=== PATIENT | male | born 1950 | race Hispanic/Latino ===

== ENCOUNTER 2024-04-02 07:43 | Emergency (ER) | payer OTHER, MEDICARE ==
[~2024-04-02] VITALS: Ht 170.2 cm; Wt 100.7 kg
--- NOTE | 2024-04-02 08:02 | NUR ---
BLADDER SCAN [id number]
--- NOTE | 2024-04-02 08:18 | NUR ---
INITIAL URINE OUTPUT WITH HARVEY PLACEMENT [id number]
[2024-04-02 08:20] LABS: BASOPHILS # (AUTO) 0.04 K/uL (0.00-0.20); BASOPHILS % (AUTO) 0.6 % (0.0-5.0); EOSINOPHILS # (AUTO) 0.06 K/uL (0.00-0.70); EOSINOPHILS % (AUTO) 0.9 % (0.0-8.0); IMMATURE GRANULOCYTE ABSOLUTE 0.04 K/uL (0-1); LYMPHOCYTES % (AUTO) 14.4 % (21.0-51.0); MEAN CORPUSCULAR HEMOGLOBIN 28.9 pg (27.0-33.0); MEAN CORPUSCULAR HGB CONC 32.9 g/dL (32.0-36.0); MEAN CORPUSCULAR VOLUME 88.1 fL (79-99); MONOCYTES # (AUTO) 0.5 K/uL (0.1-1.0); MONOCYTES % (AUTO) 7.3 % (3.0-13.0); NEUTROPHILS # (AUTO) 5.3 K/uL (1.8-7.7); NEUTROPHILS % (AUTO) 76.2 % (40.0-77.0); PLATELET COUNT (AUTO) 241 K/uL (130-400); RED BLOOD CELL COUNT(AUTO) 4.77 MIL/uL (4.50-6.20); RED CELL DISTRIBUTION WIDTH 12.8 % (11.0-15.5); WHITE BLOOD COUNT (AUTO) 6.9 K/uL (4.8-10.8)
[2024-04-02 08:29] LABS: CREATININE 0.7 mg/dL (0.5-1.3); POTASSIUM 3.6 mmol/L (3.5-5.1)
[2024-04-02 08:31] LABS: INR 1.07 (0.85-1.15); PROTHROMBIN TIME 11.9 SEC (9.6-11.6)
[2024-04-02 08:40] LABS: APPEARANCE,URINE CLEAR (CLEAR); BILIRUBIN,URINE NEGATIVE (NEGATIVE); COLOR,URINE LIGHT-YELLOW (YELLOW); GLUCOSE, URINE (UA) NEGATIVE (NEGATIVE); KETONES,URINE NEGATIVE (NEGATIVE); LEUKOCYTE ESTERASE ,URINE NEGATIVE Leu/uL (NEGATIVE); NITRATE,URINE NEGATIVE (NEGATIVE); PH,URINE 6.5 (5.0-8.0); PROTEIN,URINE NEGATIVE (NEGATIVE); UROBILINOGEN,URINE 0.2 mg/dL (0.2-1.0)
[2024-04-02 08:52] LABS: MUCUS,URINE RARE LPF (None Seen); WBC,URINE 0-1 /HPF (0-1)
--- NOTE | 2024-04-02 09:13 | EKG ---
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
--- NOTE | 2024-04-02 09:37 | ERN ---
General Chief Complaint: Urinary Retention Stated Complaint: UNABLE TO URINATE Time Seen by MD: 07:51 History of Present Illness Initial Comments 73-year-old male came in for urinary retention. Patient states that since yesterday he has not been able to urinate and has been having suprapubic pressure. Patient states that this problem has been going on for the past one year however for the past few days has been getting worse. Patient was supposed to see a urologist next week and has an appointment set up. Patient otherwise has no concerns. Allergies: Coded Allergies: No Known Drug Allergies (Unverified Allergy, Unknown, 04/02/24) Past Medical History Past Medical History: Hypertension Past Surgical History: None ROS Dictation CONSTITUTIONAL: Negative except for HPI HEAD/FACE: Negative except for HPI EENT: Negative except for HPI RESPIRATORY: Negative except for HPI GASTROINTESTINAL/ABDOMINAL: Negative except for HPI GENITOURINARY: Negative except for HPI MUSCULOSKELETAL: Negative except for HPI INTEGUMENTARY: Negative except for HPI NEUROLOGICAL/PSYCH: Negative except for HPI HEMATOLOGIC/LYMPHATIC: Negative except for HPI All Systems Negative, Except as noted above. 13 point review of systems assessed and all negative except for above. Physical Exam Physical Exam Dictation Vital Signs reviewed General Appearance: Alert, oriented x 3, no acute distress, well developed, nourished. Head and Face: non-traumatic. Eyes: PERRL, pink conjunctivas, eyelid no trauma, anterior chamber with arcus senilis. Ears: Pinnas intact and no signs of trauma or erythema ear canals clear and no discharge TM no erythema Nose: No discharge, no bleeding. Oropharynx: Mouth normal, tongue pink, pharynx clear,no erythema, tonsils no exudates, no abscesses noted, mucous membrane moist Neck: Supple, non-tender, no thyromegaly, no masses, no JVD, no bruits Breast:Deferred Chest:No tenderness, no crepitus, no paradoxical movement, no retractions Lungs:Clear, well-ventilated, symmetric, no rales, no wheezing, no rhonchi, no stridor, good breath sounds bilaterally Heart: Regular rate, regular rhythm, no murmur, no gallops Vascular: no peripheral edema, Abdomen: Soft, positive bowel sounds, nondistended, no guarding, nontender, no rebound, no masses no hepatomegaly, no splenomegaly, no Madera's sign, no hernias. Rectal: Deferred Genital: Deferred Neurological: Normal speech, motor function intact, sensory function intact Musculoskeletal: Neck nontender, full range of motion, back nontender, full range of motion, Extremities: nontender, full range of motion Skin: Color pink, dry, no turgor, no rash, no lacerations, no abrasions, no contusions. Lymphatic: Deferred Results Laboratory and Microbiology Lab and Micro Result Laboratory Tests Test 04/02/24 08:05 04/02/24 08:25 White Blood Count 6.9 K/uL (4.8-10.8) Red Blood Count 4.77 MIL/uL (4.50-6.20) Hemoglobin 13.8 g/dL (14.0-18.0) L Hematocrit 42.0 % (42-54) Mean Corpuscular Volume 88.1 fL (79-99) Mean Corpuscular Hemoglobin 28.9 pg (27.0-33.0) Mean Corpuscular Hemoglobin Concent 32.9 g/dL (32.0-36.0) Red Cell Distribution Width 12.8 % (11.0-15.5) Platelet Count 241 K/uL (130-400) Mean Platelet Volume 9.0 fL (7.5-10.5) Immature Granulocyte % (Auto) 0.6 % (0-1) Neutrophils (%) (Auto) 76.2 % (40.0-77.0) Lymphocytes (%) (Auto) 14.4 % (21.0-51.0) L Monocytes (%) (Auto) 7.3 % (3.0-13.0) Eosinophils (%) (Auto) 0.9 % (0.0-8.0) Basophils (%) (Auto) 0.6 % (0.0-5.0) Neutrophils # (Auto) 5.3 K/uL (1.8-7.7) Lymphocytes # (Auto) 1.0 K/uL (1.0-4.8) Monocytes # (Auto) 0.5 K/uL (0.1-1.0) Eosinophils # (Auto) 0.06 K/uL (0.00-0.70) Basophils # (Auto) 0.04 K/uL (0.00-0.20) Absolute Immature Granulocyte (auto 0.04 K/uL (0-1) Nucleated Red Blood Cells 0.0 % (0.0-0.19) Prothrombin Time 11.9 SEC (9.6-11.6) H Prothromb Time International Ratio 1.07 (0.85-1.15) Activated Partial Thromboplast Time 27.0 SEC (26.3-35.5) Sodium Level 135 mmol/L (136-145) L Potassium Level 3.6 mmol/L (3.5-5.1) Chloride Level 100 mmol/L (101-111) L Carbon Dioxide Level 26 mmol/L (21-32) Blood Urea Nitrogen 13 mg/dL (7-18) Creatinine 0.7 mg/dL (0.5-1.3) Glomerular Filtration Rate Calc 96 mL/min (>90) Random Glucose 118 mg/dL (70-105) H Total Calcium 8.8 mg/dL (8.5-10.1) Urine Color LIGHT-YELLOW (YELLOW) Urine Appearance CLEAR (CLEAR) Urine pH 6.5 (5.0-8.0) Urine Specific [place] 1.011 (1.001-1.031) Urine Protein NEGATIVE mg/dL (NEGATIVE) Urine Glucose (UA) NEGATIVE mg/dL (NEGATIVE) Urine Ketones NEGATIVE mg/dL (NEGATIVE) Urine Occult Blood +- (TRACE) (NEGATIVE) H Urine Nitrate NEGATIVE (NEGATIVE) Urine Bilirubin NEGATIVE mg/dL (NEGATIVE) Urine Urobilinogen 0.2 mg/dL (0.2-1.0) Urine Leukocyte Esterase NEGATIVE Kane/uL Urine RBC 2-5 /HPF (0-1) H Urine WBC 0-1 /HPF (0-1) Urine Bacteria None /HPF (None Seen) MDM MDM: Differential diagnosis: There are no social concerns with this patient. Prescription drug management Prescriptions will include: Medical management and examination interpretation discussions were had by me with other qualified healthcare professionals as indicated for the patient's care. Isaacs is placed after which 600 cc of urine came out. Patient will be discharged home to follow up with Urology patient was given leg bag for the Isaacs. Patient understands and agrees with plan of care. ED Course Orders Procedure Category Date Status Time 12 Lead Ekg Tracing- EKG 04/02/24 Complete Technical 07:52 Cbc With Differential LAB 04/02/24 Complete 07:52 Basic Metabolic Panel LAB 04/02/24 Complete 07:52 Pt And Ptt LAB 04/02/24 Complete 07:52 Urinalysis LAB 04/02/24 Complete W/Microscopic 07:52 Bladder Scan CPOE 04/02/24 Transmitted 07:56 Iv Insertion CPOE 04/02/24 Transmitted 07:56 Nurse Driven Isaacs [place] 04/02/24 In Process Removal Pro 08:18 Vital Signs Date Time Temp Pulse Resp B/P (MAP) Pulse Ox O2 Delivery O2 Flow Rate FiO2 04/02/24 08:21 86 18 130/89 96 Room Air* 0 21 04/02/24 07:45 98.8 97 18 140/98 97 Room Air DX & DISP Disposition: Discharge Departure Impression: Primary Impression: Urinary retention Condition: Stable Referrals: EUSEBIO TAVERA (PCP) ARSENIO RODARTE MD Apr 02, 2024 09:37
--- NOTE | 2024-04-02 10:00 | NUR ---
LEG BAG PLACED ORDERED. EDUCATION PROVIDED VERBALLY AND WRITTEN REGARDING HARVEY CARE.
[2024-04-02 10:06] VITALS: BP 127/87; PULSE 74; RESP 18; TEMP 98.8; O2SAT 97
== END 2024-04-02 10:08 | disposition home or self-care (01) ==
LOC: EDH 07:43
DX: R33.9 Retention of urine, unspecified (principal); R10.2 Pelvic and perineal pain; I10 Essential (primary) hypertension
CPT/HCPCS: 36415; 80048; 81001; 85025; 85610; 85730; 93005; 99284

== ENCOUNTER 2024-04-18 09:44 | Emergency (ER) | payer OTHER, MEDICARE ==
[~2024-04-18] VITALS: Ht 170.2 cm; Wt 100.8 kg
[2024-04-18 09:55] VITALS: BP 128/68; PULSE 94; RESP 18; TEMP 98.4; O2SAT 96
--- NOTE | 2024-04-18 10:26 | ERN ---
ED Note History of Present Illness Stated Complaint: HARVEY CATH Chief Complaint: Urinary Catheter Problems Time Seen by MD: 09:50 Dictation: 73-year-old male with a history of urinary retention, he was seen at this emergency department 2 weeks ago and a Harvey was placed due to urinary retention, he was discharged with the recommended to follow up with the urologist as outpatient, patient came today complaining of tubes discoloration of the urine as well fever and chills 1 week ago. He was only able to see urologist yet since he has a appointment on June 2024 Allergies: Coded Allergies: No Known Drug Allergies (Unverified Allergy, Unknown, 04/02/24) Past Medical History Past Medical History: Hypertension, Other Additional Past Medical Hx: URINARY RETENTION Surgical History: None Review of System Dictation NEGATIVE EXCEPT PER HPI Constitutional: Fever and chills subjective Eyes: Negative for injury, pain,redness, and discharge ENT: Negative for injury,pain or swelling Cardiovascular: denies chest pain, palpitations, and edema Respiratory: Negative for shortness of breath, cough, and wheezing, Abdomen/GI: Negative for abdominal pain, nausea, vomiting, diarrhea, and constipation Back: Negative for injury and pain : Negative for injury, bleeding and discharge MS/Extremity: Negative for injury and deformity Skin: Negative for rash, and discoloration Neuro: Negative for headache, weakness, numbness, tingling, and seizure Psych: Negative for suicide ideation, homicidal ideation, and hallucinations Initial Vital Sign VS Vital Signs Date Time Temp Pulse Resp B/P (MAP) Pulse Ox O2 Delivery O2 Flow Rate FiO2 04/18/24 09:49 98.4 94 18 128/68 Room Air 0 04/18/24 09:55 96 21 Physical Exam Dictation General: awake, alert, NAD Head/Face: Normocephalic, atraumatic Eyes: PERRL, EOMI, vision at baseline ENT: oral cavity clear, TMs clear, no signs of infection Neck: Trachea midline, supple, no nuchal rigidity Cardiovascular: RRR, normal S1/S2, No MRGs, no JVD Respiratory: CTAB, no respiratory distress, No rales or wheezes Abdomen: Soft , no tender Skin: Warm, dry, normal turgor, no rash MS/Extremity: Pulses equal, no cyanosis, neurovascular intact, FROM Neuro: COAx4, GCS 15, strength 5/5, CN 2-12 intact, normal cerebellar exam, normal gait, Psych: Normal behavior, mood, and affect normal Results (Laboratory/Radiology) Laboratory/Radiology Laboratory Tests Test 04/18/24 10:45 04/18/24 10:46 Urine Color YELLOW (YELLOW) Urine Appearance TURBID (CLEAR) Urine pH 8.5 (5.0-8.0) H Urine Specific [place] 1.023 (1.001-1.031) Urine Protein 600 mg/dL (NEGATIVE) H Urine Glucose (UA) NEGATIVE mg/dL (NEGATIVE) Urine Ketones NEGATIVE mg/dL (NEGATIVE) Urine Occult Blood NEGATIVE (NEGATIVE) Urine Nitrate 2+ (NEGATIVE) H Urine Bilirubin NEGATIVE mg/dL (NEGATIVE) Urine Urobilinogen 0.2 mg/dL (0.2-1.0) Urine Leukocyte Esterase 500 Kane/uL (NEGATIVE) H Urine RBC 51-100 /HPF (0-1) H Urine WBC >100 /HPF (0-1) H Urine WBC Clumps (Auto) MANY /HPF (0-1) Urine Triple Phosphate Crystals MANY /LPF (None Seen) Urine Other Crystals (Auto) 6 /HPF (None Seen) Urine Bacteria MOD /HPF (None Seen) Urine Other Casts 7 /LPF (None Seen) White Blood Count 13.9 K/uL (4.8-10.8) H Red Blood Count 4.67 MIL/uL (4.50-6.20) Hemoglobin 13.5 g/dL (14.0-18.0) L Hematocrit 40.4 % (42-54) L Mean Corpuscular Volume 86.5 fL (79-99) Mean Corpuscular Hemoglobin 28.9 pg (27.0-33.0) Mean Corpuscular Hemoglobin Concent 33.4 g/dL (32.0-36.0) Red Cell Distribution Width 12.3 % (11.0-15.5) Platelet Count 401 K/uL (130-400) H Mean Platelet Volume 8.4 fL (7.5-10.5) Immature Granulocyte % (Auto) 1.4 % (0-1) H Neutrophils (%) (Auto) 79.7 % (40.0-77.0) H Lymphocytes (%) (Auto) 10.4 % (21.0-51.0) L Monocytes (%) (Auto) 7.0 % (3.0-13.0) Eosinophils (%) (Auto) 1.0 % (0.0-8.0) Basophils (%) (Auto) 0.5 % (0.0-5.0) Neutrophils # (Auto) 11.1 K/uL (1.8-7.7) H Lymphocytes # (Auto) 1.5 K/uL (1.0-4.8) Monocytes # (Auto) 1.0 K/uL (0.1-1.0) Eosinophils # (Auto) 0.14 K/uL (0.00-0.70) Basophils # (Auto) 0.07 K/uL (0.00-0.20) Absolute Immature Granulocyte (auto 0.20 K/uL (0-1) Nucleated Red Blood Cells 0.0 % (0.0-0.19) Sodium Level 141 mmol/L (136-145) Potassium Level 3.8 mmol/L (3.5-5.1) Chloride Level 104 mmol/L (101-111) Carbon Dioxide Level 29 mmol/L (21-32) Blood Urea Nitrogen 16 mg/dL (7-18) Creatinine 0.8 mg/dL (0.5-1.3) Glomerular Filtration Rate Calc 92 mL/min (>90) Random Glucose 139 mg/dL (70-105) H Total Calcium 9.3 mg/dL (8.5-10.1) ED Course ED Course Orders Procedure Category Date Status Time Urinalysis Profile LAB 04/18/24 Complete 10:21 Cbc With Differential LAB 04/18/24 Complete 10:21 Basic Metabolic Panel LAB 04/18/24 Complete 10:21 Culture Urine BUSHRA 04/18/24 In Process 11:25 Ceftriaxone 1g Vial PHA 04/18/24 Complete (Rocephine 1g Inj) 11:30 Tamsulosin Hcl PHA 04/18/24 Complete (Flomax) 11:30 Current Medications Medications (Trade) Dose Ordered Sig/Sloan Route PRN Reason Start Time Stop Time Status Last Admin Dose Admin Ceftriaxone Sodium (ROCEphine 1G INJ) 1 gm ONCE ONCE IVPB 04/18/24 11:30 04/18/24 11:31 DC 04/18/24 11:39 Tamsulosin HCl (FloMAX) 0.4 mg ONCE ONCE PO 04/18/24 11:30 04/18/24 11:31 DC 04/18/24 11:39 Vital Signs Date Time Temp Pulse Resp B/P (MAP) Pulse Ox O2 Delivery O2 Flow Rate FiO2 04/18/24 09:55 98.4 94 18 128/68 96 Room Air* 0 21 04/18/24 09:49 98.4 94 18 128/68 Room Air 0 Medical Decision Making MDM Patient with a history of urinary retention, with a Harvey in place x2 weeks, came in due to fever/chills 1 week ago also turbinate discoloration of urine. UTI Retention Check UA Replace Harvey UA came back positive for UTI, 1 g ceftriaxone given, patient will be started on oral antibiotics at home, He wants his Harvey to be removed, I explained that he maybe he will develop urinary retention. He stated that he will take the risk. Patient he will need to follow up with the Urology as outpatient. DX & DISP Disposition: Discharge Departure Impression: Primary Impression: Urinary retention Additional Impression: UTI (urinary tract infection) Condition: Stable Scripts Sulfamethoxazole/Trimethoprim (Bactrim Ds Tablet) 800 Mg-160 Mg Tablet 1 TAB PO BID for 7 Days, #14 TAB 0 Refills Prov: ROBBIE BASURTO MD 04/18/24 Tamsulosin HCl (Flomax) 0.4 Mg Cap.er.24h 0.4 CAP PO DAILY for 30 Days, #30 CAP 0 Refills Prov: ROBBIE BASURTO MD 04/18/24 Additional Instructions: RETURN TO ER FOR ANY ACUTE OR WORSENING SYMPTOMS. FOLLOW-UP IN 1-2 DAYS WITH PRIMARY PROVIDER FOR RECHECK OF TODAY'S SYMPTOMS. Referrals: EUSEBIO TAVERA (PCP) ROBBIE BASURTO MD Apr 18, 2024 10:26
[2024-04-18 10:56] LABS: BASOPHILS # (AUTO) 0.07 K/uL (0.00-0.20); BASOPHILS % (AUTO) 0.5 % (0.0-5.0); EOSINOPHILS # (AUTO) 0.14 K/uL (0.00-0.70); HEMATOCRIT 40.4 % (42-54); LYMPHOCYTES # (AUTO) 1.5 K/uL (1.0-4.8); LYMPHOCYTES % (AUTO) 10.4 % (21.0-51.0); MEAN CORPUSCULAR HEMOGLOBIN 28.9 pg (27.0-33.0); MEAN CORPUSCULAR HGB CONC 33.4 g/dL (32.0-36.0); MEAN CORPUSCULAR VOLUME 86.5 fL (79-99); NEUTROPHILS # (AUTO) 11.1 K/uL (1.8-7.7); NEUTROPHILS % (AUTO) 79.7 % (40.0-77.0); PLATELET COUNT (AUTO) 401 K/uL (130-400); RED BLOOD CELL COUNT(AUTO) 4.67 MIL/uL (4.50-6.20); RED CELL DISTRIBUTION WIDTH 12.3 % (11.0-15.5); WHITE BLOOD COUNT (AUTO) 13.9 K/uL (4.8-10.8)
[2024-04-18 11:09] LABS: APPEARANCE,URINE TURBID (CLEAR); BILIRUBIN,URINE NEGATIVE (NEGATIVE); COLOR,URINE YELLOW (YELLOW); GLUCOSE, URINE (UA) NEGATIVE (NEGATIVE); KETONES,URINE NEGATIVE (NEGATIVE); LEUKOCYTE ESTERASE ,URINE 500 Leu/uL (NEGATIVE); NITRATE,URINE 2+ (NEGATIVE); OCCULT BLOOD,URINE NEGATIVE (NEGATIVE); PH,URINE 8.5 (5.0-8.0); PROTEIN,URINE 600 mg/dL (NEGATIVE); UROBILINOGEN,URINE 0.2 mg/dL (0.2-1.0)
[2024-04-18 11:11] LABS: CREATININE 0.8 mg/dL (0.5-1.3); POTASSIUM 3.8 mmol/L (3.5-5.1)
[2024-04-18 11:24] LABS: ADD UA MICROSCOPIC YES
[2024-04-18 11:32] LABS: BACTERIA,URINE MOD /HPF (None Seen); MUCUS,URINE RARE LPF (None Seen); OTHER CASTS, URINE 7 /LPF (None Seen); RBC,URINE 51-100 /HPF (0-1); TRIPLE PHOSPHATE CRYSTAL,UR MANY /LPF (None Seen); UNCLASSIFIED CRYSTAL 6 /HPF (None Seen); WBC CLUMP MANY /HPF (0-1); WBC,URINE >100 /HPF (0-1)
[2024-04-18] MEDS: cefTRIAXone 1G VIAL IVPB ONE (11:39)
[2024-04-18] MEDS: tamSULOsin HCL 0.4 MG CAP.ER.24H PO ONE (11:39)
[2024-04-18] MEDS ORDERED: TAMS-1 PO (12:14)
[2024-04-18] MEDS ORDERED: SULF1TAB42 PO (12:14)
--- NOTE | 2024-04-18 12:31 | NUR ---
pt chooses to keep fc in place at this time and and char follow up with urology and take abx as needed
== END 2024-04-18 12:38 | disposition home or self-care (01) ==
LOC: EDH 09:44
DX: R33.8 Other retention of urine (principal); N39.0 Urinary tract infection, site not specified; I10 Essential (primary) hypertension
CPT/HCPCS: 99284; 96365; 80048; 85025; 87086; 81001; 36415; J0696

== ENCOUNTER 2024-04-21 14:27 | Emergency (ER) | payer OTHER, MEDICARE ==
[~2024-04-21] VITALS: Ht 170.2 cm; Wt 100.7 kg
[~2024-04-21 14:27] MED LIST: SULF1TAB42 PO; TAMS-1 PO
--- NOTE | 2024-04-21 15:02 | NUR ---
HARVEY REMOVED PER DR. SOARES VERBAL ORDER.
--- NOTE | 2024-04-21 16:05 | ERN ---
General Chief Complaint: Urinary Catheter Problems Stated Complaint: CATH REMOVAL History of Present Illness Initial Comments 73-year-old male who presents for leaking from the Isaacs catheter. Patient had a Isaacs placed about three weeks ago due to urinary retention. He has been taking tamsulosin he took a brief course of antibiotics. He has been in his usual state of health until today when the Isaacs started leaking. He has no other complaints. He was requesting the Isaacs to be removed. Allergies: Coded Allergies: No Known Drug Allergies (Unverified Allergy, Unknown, 04/02/24) Home Meds Active Scripts Sulfamethoxazole/Trimethoprim (Bactrim Ds Tablet) 800 Mg-160 Mg Tablet, 1 TAB PO BID for 7 Days, #14 TAB 0 Refills Prov:ROBBIE BASURTO MD 04/18/24 Tamsulosin HCl (Flomax) 0.4 Mg Cap.er.24h, 0.4 CAP PO DAILY for 30 Days, #30 CAP 0 Refills Prov:ROBBIE BASURTO MD 04/18/24 Past Medical History Past Medical History: Hypertension Medical History Other: URINARY RETENTION Past Surgical History: None ROS Dictation CONSTITUTIONAL: No chills, no fever, no weakness, no diaphoresis, no malaise. HEAD/FACE: No signs of trauma. EENT: No eye pain, no blurred vision, no tearing, no double vision, no ear pain, no ear discharge, no nose pain, no nasal congestion, no throat pain, no throat swelling, no mouth pain. RESPIRATORY: No cough, no orthopnea, no SOB, no stridor, no wheezing. CARDIOVASCULAR: No chest pain, no edema, no palpitations, no syncope. GASTROINTESTINAL/ABDOMINAL: No abdominal pain, no constipation, no diarrhea, no nausea, no vomiting. GENITOURINARY: No abnormal discharge, no dysuria, no frequent urination, no hematuria. No complaints of pain in the genitals. MUSCULOSKELETAL: No back pain, no gout, no joint pain, no joint swelling, no muscle pain, no muscle stiffness, no neck pain. INTEGUMENTARY: No change in color, no change in hair/nails, no dryness, no lesion, no lumps, no rash. NEUROLOGICAL/PSYCH: No anxiety, not depressed, no emotional problem, no headache, no numbness, no pre-existing deficit, no history of seizures, no tremors, no weakness. HEMATOLOGIC/LYMPHATIC: Not anemic, no history of blood clots, no apparent bleeding, no bruising, glands not swollen. All Systems Negative, Except as Noted. Physical Exam Physical Exam Dictation VITAL SIGNS: Reviewed. GENERAL APPEARANCE: Alert, oriented x3, no acute distress, obese. HEAD AND FACE: Non-traumatic. EYES: PERRL, pink conjunctivas, eyelid no trauma, anterior chamber clear. EARS: Pinnas intact and no signs of trauma or erythema. Ear canals clear and no discharge. TMs no erythema. NOSE: No discharge, no bleeding. OROPHARYNX: Mouth normal, teeth no caries, tongue pink. Pharynx clear, no erythema. Tonsils no exudates, no abscesses noted. Mucous membrane moist. NECK: Supple, non-tender, no thyromegaly, no masses, no JVD, no bruits. BREAST: Deferred. CHEST: No tenderness, no crepitus, no paradoxical movement, no retractions. LUNGS: Clear, well-ventilated, symmetric, no rales, no wheezing, no rhonchi, no stridor, good breath sounds bilaterally. HEART: Regular rate, regular rhythm, no murmur, no gallops. VASCULAR: No peripheral edema. ABDOMEN: Soft, positive bowel sounds, nondistended, no guarding, nontender, no rebound, no masses no hepatomegaly, no splenomegaly, no Mad[place]'s sign, no hernias. RECTAL: Deferred. GENITAL: Deferred. NEUROLOGICAL: Normal speech, gross motor function intact, gross sensory function intact. MUSCULOSKELETAL: Neck nontender, full range of motion, back nontender, full range of motion. EXTREMITIES: Nontender, full range of motion. SKIN: Color pink, dry, no turgor, no rash, no lacerations, no abrasions, no contusions. LYMPHATICS: Deferred. MDM CC: Leaking folate or Historian: Patient Comorbidities: BPH Limitations by social determinants of health: None Differential diagnosis: Isaacs catheter complication, urinary retention, other. Vital signs are stable Isaacs was removed. Patient reports relief. He was able to urinate afterwards. We will DC and recommend PCP follow up. ED Course Vital Signs Date Time Temp Pulse Resp B/P (MAP) Pulse Ox O2 Delivery O2 Flow Rate FiO2 04/21/24 15:21 98.4 110 18 131/83 96 Room Air* 0 21 04/21/24 14:53 98.2 111 20 149/91 96 Room Air 0 DX & DISP Disposition: Discharge Departure Impression: Primary Impression: Isaacs catheter problem Condition: Stable Additional Instructions: The Isaacs catheter was removed. Please continue taking all your previously prescribed medications. Please follow up with the primary doctor. Return to the emergency department if you have any urinary retention or other symptoms. Referrals: EUSEBIO TAVERA (PCP) KESHA SOARES DO Apr 21, 2024 16:05
[2024-04-21 16:18] VITALS: BP 127/84; PULSE 98; RESP 19; TEMP 97.4; O2SAT 95
== END 2024-04-21 16:10 | disposition home or self-care (01) ==
LOC: EDH 14:27
DX: T83.038A Leakage of other urinary catheter, initial encounter (principal); I10 Essential (primary) hypertension; Y82.9 Unspecified medical devices associated with adverse incidents; Y92.89 Other specified places as the place of occurrence of the external cause
CPT/HCPCS: 99281

== ENCOUNTER 2024-04-25 07:12 | Emergency (ER) | payer OTHER, MEDICARE ==
[~2024-04-25] VITALS: Ht 170.2 cm; Wt 100.7 kg
--- NOTE | 2024-04-25 07:39 | ERN ---
General Chief Complaint: Urinary Retention Stated Complaint: URINARY RETENTION Time Seen by MD: 07:18 Source: patient History of Present Illness Initial Comments Patient is a 73 y/o male here for evaluation of urine retention. Patient states he has history of urine retention secondry to enlarged prostate. Patient states he had a similar episode in the past, and had urine catheter placed which helped with his urine retention. Allergies: Coded Allergies: No Known Drug Allergies (Unverified Allergy, Unknown, 04/02/24) Home Meds Active Scripts Sulfamethoxazole/Trimethoprim (Bactrim Ds Tablet) 800 Mg-160 Mg Tablet, 1 TAB PO BID for 7 Days, #14 TAB 0 Refills Prov:RBOBIE BASURTO MD 04/18/24 Tamsulosin HCl (Flomax) 0.4 Mg Cap.er.24h, 0.4 CAP PO DAILY for 30 Days, #30 CAP 0 Refills Prov:ROBBIE BASURTO MD 04/18/24 Past Medical History Past Medical History: Hypertension Medical History Other: URINARY RETENTION Past Surgical History: None Physical Exam General Appearance: (+) apparent distress, (+) obese Orientation: (+) alert, (+) oriented x 3 Neck: (+) normal inspection Respiratory: (+) chest non-tender Heart: (+) regular Vascular: (+) no edema Gastrointestinal: (+) soft, (+) non-tender MDM mdm: differential dg: urine retention, prostate enlargment, renal stone Patient is a 73 y/o male here for evaluation of urine retention. Patient states he has been having this symptoms since a couple of days which progressively got worse. Bladder was distended on physical exam. Isaacs was placed and patient put out 500ml of urine. Patient was advised appropriate follow up with pcp in 1-2 days. ED Course Orders Procedure Category Date Status Time Nurse Driven Isaacs [place] 04/25/24 In Process Removal Pro 07:26 Vital Signs Date Time Temp Pulse Resp B/P (MAP) Pulse Ox O2 Delivery O2 Flow Rate FiO2 04/25/24 07:14 97.7 89 16 129/75 95 Room Air 0 DX & DISP Disposition: Discharge Departure Impression: Primary Impression: Urinary retention Condition: Stable Additional Instructions: Patient was advised appropriate follow up with pcp in 1-2 days . Patient will be discharged in stable condition. Referrals: EUSEBIO TAVERA (PCP) Time of Disposition: 07:54 BUCK THOMAS MD Apr 25, 2024 07:39
[2024-04-25 08:20] VITALS: BP 116/69; PULSE 78; RESP 16; TEMP 98.2; O2SAT 97
== END 2024-04-25 08:27 | disposition home or self-care (01) ==
LOC: EDH 07:12
DX: R33.8 Other retention of urine (principal); I10 Essential (primary) hypertension
CPT/HCPCS: 51702; 99284

== ENCOUNTER 2024-05-16 09:06 | Emergency (ER) | payer OTHER, MEDICARE ==
[~2024-05-16] VITALS: Ht 170.2 cm; Wt 99.8 kg
--- NOTE | 2024-05-16 09:11 | ERN ---
General Chief Complaint: Catheter Change Stated Complaint: WANTS F/C CHANGED Time Seen by MD: 09:10 Source: patient History of Present Illness Initial Comments PATIENT IS A 74-YEAR-OLD GENTLEMAN COMING IN FOR HARVEY CATHETER EVALUATION. PER PATIENT HE HAD A HARVEY CATHETER PLACED 20 DAYS AGO AND NOTICED MILD LEAKING AROUND THE INSERTION SITE. PATIENT STATES THAT HE HAS A PENDING UROLOGIST VISIT ON EIGHT FOR THE 10 THE CC CAME IN FOR FURTHER EVALUATION. NO OTHER CURRENT COMPLAINTS. Allergies: Coded Allergies: No Known Drug Allergies (Unverified Allergy, Unknown, 04/02/24) Home Meds Active Scripts Sulfamethoxazole/Trimethoprim (Bactrim Ds Tablet) 800 Mg-160 Mg Tablet, 1 TAB PO BID for 7 Days, #14 TAB 0 Refills Prov:ROBBIE BASURTO MD 04/18/24 Tamsulosin HCl (Flomax) 0.4 Mg Cap.er.24h, 0.4 CAP PO DAILY for 30 Days, #30 CAP 0 Refills Prov:ROBBIE BASURTO MD 04/18/24 Past Medical History Past Medical History: Hypertension Medical History Other: URINARY RETENTION Past Surgical History: None ROS Dictation CONSTITUTIONAL: NO CHILLS, NO FEVER, NO WEAKNESS, NO DIAPHORESIS, NO MALAISE. HEAD/FACE: NO SIGNS OF TRAUMA. EENT: NO EYE PAIN, NO BLURRED VISION, NO TEARING, NO DOUBLE VISION, NO EAR PAIN, NO EAR DISCHARGE, NO NOSE PAIN, NO NASAL CONGESTION, NO THROAT PAIN, NO THROAT SWELLING, NO MOUTH PAIN. RESPIRATORY: NO COUGH, NO ORTHOPNEA, NO SOB, NO STRIDOR, NO WHEEZING. CARDIOVASCULAR: NO CHEST PAIN, NO EDEMA, NO PALPITATIONS, NO SYNCOPE. GASTROINTESTINAL/ABDOMINAL: NO ABDOMINAL PAIN, NO CONSTIPATION, NO DIARRHEA, NO NAUSEA, NO VOMITING. GENITOURINARY: NO ABNORMAL DISCHARGE, NO DYSURIA, NO FREQUENT URINATION, NO HEMATURIA. NO COMPLAINTS OF PAIN IN THE GENITALS. MUSCULOSKELETAL: NO BACK PAIN, NO GOUT, NO JOINT PAIN, NO JOINT SWELLING, NO MUSCLE PAIN, NO MUSCLE STIFFNESS, NO NECK PAIN. INTEGUMENTARY: NO CHANGE IN COLOR, NO CHANGE IN HAIR/NAILS, NO DRYNESS, NO LESION, NO LUMPS, NO RASH. NEUROLOGICAL/PSYCH: NO ANXIETY, NOT DEPRESSED, NO EMOTIONAL PROBLEM, NO HEADACHE, NO NUMBNESS, NO PRE-EXISTING DEFICIT, NO HISTORY OF SEIZURES, NO TREMORS, NO WEAKNESS. HEMATOLOGIC/LYMPHATIC: NOT ANEMIC, NO HISTORY OF BLOOD CLOTS, NO APPARENT BLEEDING, NO BRUISING, GLANDS NOT SWOLLEN. ALL SYSTEMS NEGATIVE, EXCEPT NOTED. Physical Exam Physical Exam Dictation VITAL SIGNS: REVIEWED. GENERAL APPEARANCE: ALERT, ORIENTED X3, NO ACUTE DISTRESS, OBESE. HEAD AND FACE: NON-TRAUMATIC. EYES: PERRL, PINK CONJUNCTIVAS, EYELID NO TRAUMA, ANTERIOR CHAMBER CLEAR. EARS: PINNAS INTACT AND NO SIGNS OF TRAUMA OR ERYTHEMA. EAR CANALS CLEAR AND NO DISCHARGE. TMS NO ERYTHEMA. NOSE: NO DISCHARGE, NO BLEEDING. OROPHARYNX: MOUTH NORMAL, TEETH NO CARIES, TONGUE PINK. PHARYNX CLEAR, NO ERYTHEMA. TONSILS NO EXUDATES, NO ABSCESSES NOTED. MUCOUS MEMBRANE MOIST. NECK: SUPPLE, NON-TENDER, NO THYROMEGALY, NO MASSES, NO JVD, NO BRUITS. BREAST: DEFERRED. CHEST: NO TENDERNESS, NO CREPITUS, NO PARADOXICAL MOVEMENT, NO RETRACTIONS. LUNGS: CLEAR, WELL-VENTILATED, SYMMETRIC, NO RALES, NO WHEEZING, NO RHONCHI, NO STRIDOR, GOOD BREATH SOUNDS BILATERALLY. HEART: REGULAR RATE, REGULAR RHYTHM, NO MURMUR, NO GALLOPS. VASCULAR: NO PERIPHERAL EDEMA. ABDOMEN: SOFT, POSITIVE BOWEL SOUNDS, NONDISTENDED, NO GUARDING, NONTENDER, NO REBOUND, NO MASSES NO HEPATOMEGALY, NO SPLENOMEGALY, NO OROZCO'S SIGN, NO HERNIAS. RECTAL: DEFERRED. GENITAL: DEFERRED. NEUROLOGICAL: NORMAL SPEECH, GROSS MOTOR FUNCTION INTACT, GROSS SENSORY FUNCTION INTACT. MUSCULOSKELETAL: NECK NONTENDER, FULL RANGE OF MOTION, BACK NONTENDER, FULL RANGE OF MOTION. EXTREMITIES: NONTENDER, FULL RANGE OF MOTION. SKIN: COLOR PINK, DRY, NO TURGOR, NO RASH, NO LACERATIONS, NO ABRASIONS, NO CONTUSIONS. LYMPHATICS: DEFERRED. Results Laboratory and Microbiology Labs Reviewed?: Yes MDM MDM: DIFFERENTIAL DIAGNOSIS: HARVEY EXCHANGED, PATIENT IS A 74-YEAR-OLD MALE COMING IN TO EXCHANGE HIS HARVEY. PATIENT STATES THAT HE HAS BEEN HAVING PROBLEMS WITH THE HARVEY WHICH WAS PLACED 20 DAYS AGO. PHYSICAL EXAM THE HARVEY IS INSERTED CORRECTLY BUT THERE IS MILD LEAKAGE HARVEY WAS EXCHANGED. I ADVISED HIM APPROPRIATE FOLLOW UP WITH UROLOGY SCHEDULED BEFORE. PATIENT WILL BE DISCHARGED IN STABLE CONDITION. ED Course Vital Signs Date Time Temp Pulse Resp B/P (MAP) Pulse Ox O2 Delivery O2 Flow Rate FiO2 05/16/24 09:09 97.9 97 16 134/80 96 Room Air 0 DX & DISP Disposition: Discharge Departure Impression: Primary Impression: Harvey catheter problem Condition: Stable Additional Instructions: FOLLOW-UP WITH PRIMARY CARE PROVIDER IN 1 TO 2 DAYS. TAKE MEDICATIONS DIRECTED HERE IN THE EMERGENCY ROOM. OKAY TO CONTINUE HOME MEDICATIONS UNLESS OTHERWISE DISCUSSED DURING YOUR VISIT IN THE EMERGENCY ROOM TODAY. RETURN TO YOUR NEAREST EMERGENCY ROOM IF SYMPTOMS WORSEN OR IF THERE IS NO IMPROVEMENT. CALL 911 IF YOU NEED IMMEDIATE ASSISTANCE. TAKE TYLENOL [id number] NEEDED AND IF NO CONTRAINDICATIONS ARE PRESENT. INCREASE ORAL HYDRATION. A WOUND CULTURE OR URINE CULTURE WAS ORDERED HERE IN THE EMERGENCY ROOM DEPARTMENT PLEASE FOLLOW-UP WITH PRIMARY CARE PROVIDER AND ADVISE THEM TO GET REPEAT PORTS FROM OUR FACILITY. IF YOU HAD ANY ABDIEL WRAP/SPLINTS THAT WERE APPLIED HERE, PLEASE DO NOT REMOVE THEM UNTIL YOU SEE YOUR PRIMARY CARE OR SPECIALTY. REFERRALS: Referrals: EUSEBIO TAVERA (PCP) Time of Disposition: 10:07 BUCK THOMAS MD May 16, 2024 09:11
[2024-05-16 10:12] VITALS: BP 131/80; PULSE 90; RESP 16; TEMP 97.9; O2SAT 97
== END 2024-05-16 10:30 | disposition home or self-care (01) ==
LOC: EDH 09:06
DX: T83.038A Leakage of other urinary catheter, initial encounter (principal); I10 Essential (primary) hypertension; Y82.8 Other medical devices associated with adverse incidents; Y92.89 Other specified places as the place of occurrence of the external cause
CPT/HCPCS: 51702; 99284

== ENCOUNTER 2024-05-24 07:00 | Emergency (ER) | payer OTHER, MEDICARE ==
[~2024-05-24] VITALS: Ht 170.2 cm; Wt 99.8 kg
--- NOTE | 2024-05-24 07:05 | NUR ---
PT JUST PLACED IN ED 10
--- NOTE | 2024-05-24 07:19 | ERN ---
General Chief Complaint: Urinary Catheter Problems Stated Complaint: HARVEY ISSUES Time Seen by MD: 07:08 Source: patient History of Present Illness Initial Comments Patient is a 74-year-old male coming in to be evaluated for Harvey catheter problem. Patient states that he had a Harvey catheter placed a week ago and states he has having some dysuria. He states that he has the urge to urinate but believes that the Harvey is not working. No other current complaint. Allergies: Coded Allergies: No Known Drug Allergies (Unverified Allergy, Unknown, 04/02/24) Home Meds Active Scripts Sulfamethoxazole/Trimethoprim (Bactrim Ds Tablet) 800 Mg-160 Mg Tablet, 1 TAB PO BID for 7 Days, #14 TAB 0 Refills Prov:ROBBIE BASURTO MD 04/18/24 Tamsulosin HCl (Flomax) 0.4 Mg Cap.er.24h, 0.4 CAP PO DAILY for 30 Days, #30 CAP 0 Refills Prov:ROBBIE BASURTO MD 04/18/24 Past Medical History Past Medical History: High Cholesterol, Hypertension, Prostatitis Medical History Other: URINARY RETENTION Past Surgical History: None ROS Dictation CONSTITUTIONAL: No chills, no fever, no weakness, no diaphoresis, no malaise. HEAD/FACE: No signs of trauma. EENT: No eye pain, no blurred vision, no tearing, no double vision, no ear pa in, no ear discharge, no nose pain, no nasal congestion, no throat pain, no throat swelling, no mouth pain. RESPIRATORY: No cough, no orthopnea, no SOB, no stridor, no wheezing. CARDIOVASCULAR: No chest pain, no edema, no palpitations, no syncope. GASTROINTESTINAL/ABDOMINAL: No abdominal pain, no constipation, no diarrhea, no nausea, no vomiting. GENITOURINARY: No abnormal discharge, no dysuria, no frequent urination, no hematuria. No complaints of pain in the genitals. MUSCULOSKELETAL: No back pain, no gout, no joint pain, no joint swelling, no muscle pain, no muscle stiffness, no neck pain. INTEGUMENTARY: No change in color, no change in hair/nails, no dryness, no lesion, no lumps, no rash. NEUROLOGICAL/PSYCH: No anxiety, not depressed, no emotional problem, no headache, no numbness, no pre-existing deficit, no history of seizures, no tremors, no weakness. HEMATOLOGIC/LYMPHATIC: Not anemic, no history of blood clots, no apparent bleeding, no bruising, glands not swollen. All Systems Negative, Except as Noted. Physical Exam Physical Exam Dictation VITAL SIGNS: Reviewed. GENERAL APPEARANCE: Alert, oriented x3, no acute distress, obese. HEAD AND FACE: Non-traumatic. EYES: PERRL, pink conjunctivas, eyelid no trauma, anterior chamber clear. EARS: Pinnas intact and no signs of trauma or erythema. Ear canals clear and no discharge. TMs no erythema. NOSE: No discharge, no bleeding. OROPHARYNX: Mouth normal, teeth no caries, tongue pink. Pharynx clear, no erythema. Tonsils no exudates, no abscesses noted. Mucous membrane moist. NECK: Supple, non-tender, no thyromegaly, no masses, no JVD, no bruits. BREAST: Deferred. CHEST: No tenderness, no crepitus, no paradoxical movement, no retractions. LUNGS: Clear, well-ventilated, symmetric, no rales, no wheezing, no rhonchi, no stridor, good breath sounds bilaterally. HEART: Regular rate, regular rhythm, no murmur, no gallops. VASCULAR: No peripheral edema. ABDOMEN: Soft, positive bowel sounds, nondistended, no guarding, nontender, no rebound, no masses no hepatomegaly, no splenomegaly, no Madera's sign, no hernias. RECTAL: Deferred. GENITAL: Deferred. NEUROLOGICAL: Normal speech, gross motor function intact, gross sensory function intact. MUSCULOSKELETAL: Neck nontender, full range of motion, back nontender, full range of motion. EXTREMITIES: Nontender, full range of motion. SKIN: Color pink, dry, no turgor, no rash, no lacerations, no abrasions, no contusions. LYMPHATICS: Deferred. Results Laboratory and Microbiology Labs Reviewed?: Yes MDM MDM: Differential diagnosis:urine retention, Harvey catheter problem, Patient is a 74-year-old male coming in to be evaluated for urine Harvey catheter problem. Harvey was exchanged mild blood initially then cleared up. Patient will be discharged in stable condition with a diagnosis of urinary retention secondary to Harvey catheter problem. ED Course Vital Signs Date Time Temp Pulse Resp B/P (MAP) Pulse Ox O2 Delivery O2 Flow Rate FiO2 05/24/24 07:02 97.5 109 20 180/104 98 Room Air DX & DISP Disposition: Discharge Departure Impression: Primary Impression: Harvey catheter problem Condition: Stable Scripts Cephalexin Monohydrate (Keflex) 500 Mg Cap 1 CAP PO TID for 10 Days, #30 CAP 0 Refills Prov: BUCK THOMAS MD 05/24/24 Additional Instructions: FOLLOW-UP WITH PRIMARY CARE PROVIDER IN 1 TO 2 DAYS. TAKE MEDICATIONS DIRECTED HERE IN THE EMERGENCY ROOM. OKAY TO CONTINUE HOME MEDICATIONS UNLESS OTHERWISE DISCUSSED DURING YOUR VISIT IN THE EMERGENCY ROOM TODAY. RETURN TO YOUR NEAREST EMERGENCY ROOM IF SYMPTOMS WORSEN OR IF THERE IS NO IMPROVEMENT. CALL 911 IF YOU NEED IMMEDIATE ASSISTANCE. TAKE TYLENOL [id number] NEEDED AND IF NO CONTRAINDICATIONS ARE PRESENT. INCREASE ORAL HYDRATION. A WOUND CULTURE OR URINE CULTURE WAS ORDERED HERE IN THE EMERGENCY ROOM DEPARTMENT PLEASE FOLLOW-UP WITH PRIMARY CARE PROVIDER AND ADVISE THEM TO GET REPEAT PORTS FROM OUR FACILITY. IF YOU HAD ANY ABDIEL WRAP/SPLINTS THAT WERE APPLIED HERE, PLEASE DO NOT REMOVE THEM UNTIL YOU SEE YOUR PRIMARY CARE OR SPECIALTY. Referrals: Referrals: EUSEBIO TAVERA (PCP) JAE HO MD Time of Disposition: 09:26 BUCK THOMAS MD May 24, 2024 07:19
--- NOTE | 2024-05-24 08:03 | NUR ---
HARVEY IRRIGATED W/100ML NS FOR IRRIGATION. PT TO STAND UP AND SEE IF IT DRAINS OUT. THERE WAS NO RESISTANCE UPON IRRIGATION
--- NOTE | 2024-05-24 08:44 | NUR ---
HARVEY REMOVAL: HARVEY CATH THAT PT ARRIVED W/WAS DISCONTINUED INTACT. A LARGE BLOOD CLOT CAME OUT FROM THE URETHRA.
[2024-05-24] MEDS ORDERED: CEPH500B PO (09:27)
--- NOTE | 2024-05-24 09:42 | NUR ---
LEG BAG: HARVEY CATH CHANGED OVER TO A URINE LEG BAG
[2024-05-24 09:48] VITALS: BP 158/95; PULSE 100; RESP 17; TEMP 98; O2SAT 97
--- NOTE | 2024-05-24 09:49 | NUR ---
BLADDER DISCOMFORT RELEIVED POST NEW HARVEY INSERTION AND DRAINED BLADDER
== END 2024-05-24 10:01 | disposition home or self-care (01) ==
LOC: EDH 07:00
DX: T83.9XXA Unspecified complication of genitourinary prosthetic device, implant and graft, initial encounter (principal); I10 Essential (primary) hypertension; E78.00 Pure hypercholesterolemia, unspecified; Y84.8 Other medical procedures as the cause of abnormal reaction of the patient, or of later complication, without mention of misadventure at the time of the procedure; Y92.89 Other specified places as the place of occurrence of the external cause
CPT/HCPCS: 51702; 99284

== ENCOUNTER 2024-06-19 05:12 | Emergency (ER) | payer OTHER, MEDICARE ==
[~2024-06-19] VITALS: Ht 170.2 cm; Wt 99.8 kg
[~2024-06-19 05:12] MED LIST changes: +CEPH500B PO; -TAMS-1 PO; +TAMS-55 PO
--- NOTE | 2024-06-19 05:24 | ERN ---
General Chief Complaint: Urinary Retention Stated Complaint: URINARY RETENTION Time Seen by MD: 05:24 History of Present Illness Initial Comments Patient is a 74-year-old male who has had an indwelling Isaacs for at least 20 days. He was seen here in this emergency room about two weeks ago where the Isaacs was clogged and needed to be replaced. He saw his urologist yesterday who removed the Isaacs to see if the patient could void on his own. The patient was able to void briefly but then has not been able to void at all for the last 18 hours in his had increasing pain in his lower abdominal area. No fevers or chills. Allergies: Coded Allergies: No Known Drug Allergies (Unverified Allergy, Unknown, 04/02/24) Home Meds Active Scripts Cephalexin Monohydrate (Keflex) 500 Mg Cap, 1 CAP PO TID for 10 Days, #30 CAP 0 Refills Prov:BUCK THOMAS MD 05/24/24 Sulfamethoxazole/Trimethoprim (Bactrim Ds Tablet) 800 Mg-160 Mg Tablet, 1 TAB PO BID for 7 Days, #14 TAB 0 Refills Prov:ROBBIE BASURTO MD 04/18/24 Tamsulosin HCl (Flomax) 0.4 Mg Cap.er.24h, 0.4 CAP PO DAILY for 30 Days, #30 CAP 0 Refills Prov:ROBBIE BASURTO MD 04/18/24 Past Medical History Past Medical History: Hypertension, Prostatitis Medical History Other: URINARY RETENTION Past Surgical History: None Constitutional: (-) chills, (-) diaphoresis, (-) fever, (-) malaise, (-) weakness, (-) other documentation EENTM: (-) eye pain, (-) blurred vision, (-) tearing, (-) double vision, (-) ear pain, (-) ear discharge, (-) nose pain, (-) nose congestion, (-) throat pain, (-) Throat swelling, (-) mouth pain, (-) tooth pain, (-) mouth swelling, (-) other documentation Cardiovascular: (-) chest pain, (-) edema, (-) palpitations, (-) syncope, (-) dyspnea on exertion, (-) other documentation Gastrointestinal/Abdominal: (-) nausea, (-) vomiting, (-) diarrhea, (-) abdominal pain, (-) abdominal distention, (-) constipation, (-) rectal bleeding, (-) dark stool/melena, (-) other documentation Musculoskeletal: (-) Neck pain, (-) back pain, (-) Flank Pain, (-) joint pain, (-) joint swelling, (-) muscle pain, (-) muscle stiffness, (-) gout, (-) other documentation Skin: (-) laceration, (-) contusion, (-) abrasion, (-) abscess, (-) rash, (-) change in color, (-) change in hair, (-) change in nails, (-) diaphoresis, (-) dryness, (-) other documentation Neuro: (-) altered mental status, (-) headache, (-) syncope, (-) paralysis, (-) numbness, (-) seizure, (-) pre-existing deficit, (-) tremors, (-) weakness, (-) dizziness, (-) slurred speech, (-) vertigo, (-) other documentation Physical Exam General Appearance: (+) mild distress Head/Face Trauma: No Gastrointestinal: (+) tender Gastrointestinal Comment Patient has tenderness in his bilateral lower quadrants of his abdomen. MDM Patient most likely has urinary retention from his Isaacs catheter being removed. We scanned his bladder and he had 433 cc of fluid in it a new Isaacs was placed with a release of urine and decompression of his bladder. We will DC him home to follow up with his urologist. ED Course Vital Signs Date Time Temp Pulse Resp B/P (MAP) Pulse Ox O2 Delivery O2 Flow Rate FiO2 06/19/24 05:16 98.2 69 18 146/88 97 Room Air 0 DX & DISP Disposition: Discharge Departure Impression: Primary Impression: Urinary retention Additional Impression: Isaacs catheter problem Condition: Stable Referrals: EUSEBIO TAVERA (PCP) HONORIO BROOKS MD Jun 19, 2024 05:24
--- NOTE | 2024-06-19 05:36 | NUR ---
BLADDER SCANNER RESULT 433ML OF URINE IN BLADDER.
--- NOTE | 2024-06-19 05:37 | NUR ---
PER ED MD, NO URINALYSIS COLLECTION TO BE DONE AT THIS TIME
[2024-06-19 05:57] VITALS: BP 136/78; PULSE 65; RESP 18; TEMP 98.3; O2SAT 98
--- NOTE | 2024-06-19 05:59 | NUR ---
PATIENT AND PATIENT'S WERE EDUCATED ON AND DEMONSTRATED PROPER USAGE OF LEG BAG/CATHETER CARE.
== END 2024-06-19 06:00 | disposition home or self-care (01) ==
LOC: EDH 05:12
DX: T83.098A Other mechanical complication of other urinary catheter, initial encounter (principal); R33.9 Retention of urine, unspecified; I10 Essential (primary) hypertension; Z79.899 Other long term (current) drug therapy; Y84.6 Urinary catheterization as the cause of abnormal reaction of the patient, or of later complication, without mention of misadventure at the time of the procedure
CPT/HCPCS: 51702; 99284

== ENCOUNTER 2024-08-07 09:16 | Emergency (ER) | payer OTHER, MEDICARE ==
[~2024-08-07] VITALS: Ht 170.2 cm; Wt 102.1 kg
[2024-08-07 10:14] VITALS: BP 133/75; PULSE 74; RESP 17; TEMP 97.8; O2SAT 95
[2024-08-07] MEDS: BUMETANIDE 1MG/4ML VIAL IVP ONE (10:14)
--- NOTE | 2024-08-07 10:22 | ERN ---
General Chief Complaint: Urinary Catheter Problems Stated Complaint: HARVEY REMOVAL Time Seen by MD: 09:29 History of Present Illness Initial Comments Patient is a 74-year-old male with a an indwelling Harvey catheter. He comes into the emergency room because it was leaking urine down his right leg. He has absolutely 0 other symptoms. Allergies: Coded Allergies: No Known Drug Allergies (Unverified Allergy, Unknown, 04/02/24) Home Meds Active Scripts Cephalexin Monohydrate (Keflex) 500 Mg Cap, 1 CAP PO TID for 10 Days, #30 CAP 0 Refills Prov:BUCK THOMAS MD 05/24/24 Sulfamethoxazole/Trimethoprim (Bactrim Ds Tablet) 800 Mg-160 Mg Tablet, 1 TAB PO BID for 7 Days, #14 TAB 0 Refills Prov:ROBBIE BASURTO MD 04/18/24 Tamsulosin HCl (Flomax) 0.4 Mg Cap.er.24h, 0.4 CAP PO DAILY for 30 Days, #30 CAP 0 Refills Prov:ROBBIE BASURTO MD 04/18/24 Past Medical History Past Medical History: Hypertension, Prostatitis Medical History Other: URINARY RETENTION Past Surgical History: None ROS Dictation Review of systems is negative. Physical Exam General Appearance: (+) no apparent distress Orientation: (+) oriented x 3 Head/Face Trauma: No Eye: bilateral eye normal inspection, bilateral eye PERRL, bilateral eye EOMI Ear, Nose, Throat: (+) hearing grossly normal, (+) normal ENT inspection Neck: (+) normal inspection, (+) supple Respiratory: (+) chest non-tender, (+) lungs clear Heart: (+) regular Vascular: (+) no edema Gastrointestinal: (+) soft MDM The nurse noted that the bag connected to the Harvey catheter was leaking at the drain spout. The nurse replaced the Harvey bag and the patient no longer had urine leaking. I discussed the situation with the patient. He assures me 100% that the leakage of the Harvey onto his leg was his only and is his only chief complaint. Therefore I discharged him from the ED. ED Course Orders Procedure Category Date Status Time Bumetanide 1mg/4ml PHA 08/07/24 Complete Vial (Bumex 1mg Vial) 09:30 Current Medications Medications (Trade) Dose Ordered Sig/Sloan Route PRN Reason Start Time Stop Time Status Last Admin Dose Admin Bumetanide (Bumex 1mg Vial) 1 mg ONCE ONCE IVP 08/07/24 09:30 08/07/24 09:37 DC Vital Signs Date Time Temp Pulse Resp B/P (MAP) Pulse Ox O2 Delivery O2 Flow Rate FiO2 08/07/24 10:14 97.9 74 17 133/75 95 Room Air* 0 21 08/07/24 09:18 98.2 92 16 131/82 97 Room Air DX & DISP Disposition: Discharge Departure Impression: Primary Impression: Harvey catheter problem Condition: Stable Referrals: EUSEBIO TAVERA (PCP) HONORIO BROOKS MD August 07, 2024 10:22
--- NOTE | 2024-08-07 10:36 | NUR ---
PATIENT STATED HARVEY BAG WAS LEAKING, NOT CATHETER, I CHANGED OUT HARVEY LEG BAG AND PROVIDED PATIENT AN EXTRA ONE TO TAKE HOME, NO COMPLICATIONS
--- NOTE | 2024-08-07 10:52 | NUR ---
PATIENT WAS DC'D BY DR. BROOKS I EXPLAINED TO PATIENT TO FOLLOW UP WITH PCP AND PROVIDED INFO BASED ON DIAGNOSIS PATIENT AMBULATED OUT OF ED, ACCOMPANIED BY , NO COMPLICATIONS
== END 2024-08-07 10:51 | disposition home or self-care (01) ==
LOC: EDH 09:16
DX: T83.038A Leakage of other urinary catheter, initial encounter (principal); I10 Essential (primary) hypertension; Z79.899 Other long term (current) drug therapy; Y84.6 Urinary catheterization as the cause of abnormal reaction of the patient, or of later complication, without mention of misadventure at the time of the procedure
CPT/HCPCS: 99281

== ENCOUNTER 2024-10-20 08:49 | Emergency (ER) | payer OTHER, MEDICAID ==
[~2024-10-20] VITALS: Ht 170.2 cm; Wt 99.8 kg
--- NOTE | 2024-10-20 08:58 | ERN ---
General Chief Complaint: Other Problems Stated Complaint: REMOVE F/C Time Seen by MD: 08:54 Source: patient History of Present Illness Initial Comments PATIENT IS A 74-YEAR-OLD MALE COMING IN TO HAVE HARVEY REMOVED. PER PATIENT HE HAD A HARVEY PLACED A MONTH AGO. HE WAS SENT OVER FROM HIS UROLOGIST TO HAVE HARVEY REMOVED. Allergies: Coded Allergies: No Known Drug Allergies (Unverified Allergy, Unknown, 04/02/24) Home Meds Active Scripts Cephalexin Monohydrate (Keflex) 500 Mg Cap, 1 CAP PO TID for 10 Days, #30 CAP 0 Refills Prov:BUCK THOMAS MD 05/24/24 Sulfamethoxazole/Trimethoprim (Bactrim Ds Tablet) 800 Mg-160 Mg Tablet, 1 TAB PO BID for 7 Days, #14 TAB 0 Refills Prov:ROBBIE BASURTO MD 04/18/24 Tamsulosin HCl (Flomax) 0.4 Mg Cap.er.24h, 0.4 CAP PO DAILY for 30 Days, #30 CAP 0 Refills Prov:ROBBIE BASURTO MD 04/18/24 Past Medical History Past Medical History: Hypertension, Prostatitis Medical History Other: URINARY RETENTION Past Surgical History: None ROS Dictation CONSTITUTIONAL: NO CHILLS, NO FEVER, NO WEAKNESS, NO DIAPHORESIS, NO MALAISE. HEAD/FACE: NO SIGNS OF TRAUMA. EENT: NO EYE PAIN, NO BLURRED VISION, NO TEARING, NO DOUBLE VISION, NO EAR PAIN, NO EAR DISCHARGE, NO NOSE PAIN, NO NASAL CONGESTION, NO THROAT PAIN, NO THROAT SWELLING, NO MOUTH PAIN. RESPIRATORY: NO COUGH, NO ORTHOPNEA, NO SOB, NO STRIDOR, NO WHEEZING. CARDIOVASCULAR: NO CHEST PAIN, NO EDEMA, NO PALPITATIONS, NO SYNCOPE. GASTROINTESTINAL/ABDOMINAL: NO ABDOMINAL PAIN, NO CONSTIPATION, NO DIARRHEA, NO NAUSEA, NO VOMITING. GENITOURINARY: NO ABNORMAL DISCHARGE, NO DYSURIA, NO FREQUENT URINATION, NO HEMATURIA. NO COMPLAINTS OF PAIN IN THE GENITALS. MUSCULOSKELETAL: NO BACK PAIN, NO GOUT, NO JOINT PAIN, NO JOINT SWELLING, NO MUSCLE PAIN, NO MUSCLE STIFFNESS, NO NECK PAIN. INTEGUMENTARY: NO CHANGE IN COLOR, NO CHANGE IN HAIR/NAILS, NO DRYNESS, NO LESION, NO LUMPS, NO RASH. NEUROLOGICAL/PSYCH: NO ANXIETY, NOT DEPRESSED, NO EMOTIONAL PROBLEM, NO HEADACHE, NO NUMBNESS, NO PRE-EXISTING DEFICIT, NO HISTORY OF SEIZURES, NO TREMORS, NO WEAKNESS. HEMATOLOGIC/LYMPHATIC: NOT ANEMIC, NO HISTORY OF BLOOD CLOTS, NO APPARENT BLEEDING, NO BRUISING, GLANDS NOT SWOLLEN. ALL SYSTEMS NEGATIVE, EXCEPT NOTED. Physical Exam Physical Exam Dictation VITAL SIGNS: REVIEWED. GENERAL APPEARANCE: ALERT, ORIENTED X3, NO ACUTE DISTRESS, OBESE. HEAD AND FACE: NON-TRAUMATIC. EYES: PERRL, PINK CONJUNCTIVAS, EYELID NO TRAUMA, ANTERIOR CHAMBER CLEAR. EARS: PINNAS INTACT AND NO SIGNS OF TRAUMA OR ERYTHEMA. EAR CANALS CLEAR AND NO DISCHARGE. TMS NO ERYTHEMA. NOSE: NO DISCHARGE, NO BLEEDING. OROPHARYNX: MOUTH NORMAL, TEETH NO CARIES, TONGUE PINK. PHARYNX CLEAR, NO ERYTHEMA. TONSILS NO EXUDATES, NO ABSCESSES NOTED. MUCOUS MEMBRANE MOIST. NECK: SUPPLE, NON-TENDER, NO THYROMEGALY, NO MASSES, NO JVD, NO BRUITS. BREAST: DEFERRED. CHEST: NO TENDERNESS, NO CREPITUS, NO PARADOXICAL MOVEMENT, NO RETRACTIONS. LUNGS: CLEAR, WELL-VENTILATED, SYMMETRIC, NO RALES, NO WHEEZING, NO RHONCHI, NO STRIDOR, GOOD BREATH SOUNDS BILATERALLY. HEART: REGULAR RATE, REGULAR RHYTHM, NO MURMUR, NO GALLOPS. VASCULAR: NO PERIPHERAL EDEMA. ABDOMEN: SOFT, POSITIVE BOWEL SOUNDS, NONDISTENDED, NO GUARDING, NONTENDER, NO REBOUND, NO MASSES NO HEPATOMEGALY, NO SPLENOMEGALY, NO OROZCO'S SIGN, NO HERNIAS. RECTAL: DEFERRED. GENITAL: DEFERRED. NEUROLOGICAL: NORMAL SPEECH, GROSS MOTOR FUNCTION INTACT, GROSS SENSORY FUNCTION INTACT. MUSCULOSKELETAL: NECK NONTENDER, FULL RANGE OF MOTION, BACK NONTENDER, FULL RANGE OF MOTION. EXTREMITIES: NONTENDER, FULL RANGE OF MOTION. SKIN: COLOR PINK, DRY, NO TURGOR, NO RASH, NO LACERATIONS, NO ABRASIONS, NO CONTUSIONS. LYMPHATICS: DEFERRED. Results Laboratory and Microbiology Labs Reviewed?: Yes MDM MDM: DIFFERENTIAL DIAGNOSIS: HARVEY CATHETER REMOVAL RATIONALE: TESTS CONSIDERED AND ORDERED SECONDARY TO SHARED DECISION MAKING INCLUDE: PREVIOUS OUTSIDE RECORDS REVIEWED: OLD ER VISITS. RISK OF COMPLICATION AND/OR MORBIDITY OR MORTALITY OF PATIENT MANAGEMENT: NONE MEDICATIONS-PER MEDICATION RECONCILIATION NEED FOR HOSPITALIZATION: PATIENT DOES NOT MEET CRITERIA FOR HOSPITALIZATION. NEED FOR EMERGENCY MAJOR/MINOR SURGERY: NO PATIENT IS A 74-YEAR-OLD GENTLEMAN COMING IN WITH A HARVEY. PER PATIENT THE UROLOGIST TOLD HIM IN TO FOLLOW UP WITH THE IN HIS OUTPATIENT. HARVEY WAS REMOVED PATIENT TOLERATED PROCEDURE HE WILL BE DISCHARGED IN STABLE CONDITION. ED Course Vital Signs Date Time Temp Pulse Resp B/P (MAP) Pulse Ox O2 Delivery O2 Flow Rate FiO2 10/20/24 08:54 97.9 84 16 149/80 96 Room Air 0 DX & DISP Disposition: Discharge Departure Impression: Primary Impression: Encounter for Harvey catheter removal Condition: Stable Additional Instructions: FOLLOW-UP WITH PRIMARY CARE PROVIDER IN 1 TO 2 DAYS. TAKE MEDICATIONS DIRECTED HERE IN THE EMERGENCY ROOM. OKAY TO CONTINUE HOME MEDICATIONS UNLESS OTHERWISE DISCUSSED DURING YOUR VISIT IN THE EMERGENCY ROOM TODAY. RETURN TO YOUR NEAREST EMERGENCY ROOM IF SYMPTOMS WORSEN OR IF THERE IS NO IMPROVEMENT. CALL 911 IF YOU NEED IMMEDIATE ASSISTANCE. TAKE TYLENOL [id number] NEEDED AND IF NO CONTRAINDICATIONS ARE PRESENT. INCREASE ORAL HYDRATION. A WOUND CULTURE OR URINE CULTURE WAS ORDERED HERE IN THE EMERGENCY ROOM DEPARTMENT PLEASE FOLLOW-UP WITH PRIMARY CARE PROVIDER AND ADVISE THEM TO GET REPORTS FROM OUR FACILITY. IF YOU HAD ANY ABDIEL WRAP/SPLINTS THAT WERE APPLIED HERE, PLEASE DO NOT REMOVE THEM UNTIL YOU SEE YOUR PRIMARY CARE OR SPECIALTY. REFERRALS: Referrals: EUSEBIO TAVERA (PCP) Time of Disposition: 09:32 BUCK THOMAS MD Oct 20, 2024 08:58
[2024-10-20 09:41] VITALS: BP 133/67; PULSE 78; RESP 20; TEMP 97.8; O2SAT 97
[2024-10-20] MEDS ORDERED: CEPH500B PO (20:32)
== END 2024-10-20 09:47 | disposition home or self-care (01) ==
LOC: EDH 08:49
DX: Z46.6 Encounter for fitting and adjustment of urinary device (principal); I10 Essential (primary) hypertension; Z79.899 Other long term (current) drug therapy
CPT/HCPCS: 51701; 81001; 87086; 87186; 99282; 99284

== ENCOUNTER 2024-10-20 19:16 | Emergency (ER) | payer OTHER, MEDICAID ==
[~2024-10-20] VITALS: Ht 175.3 cm; Wt 106.1 kg
[2024-10-20 19:27] VITALS: BP 153/87; PULSE 92; RESP 18; TEMP 97.7; O2SAT 97
--- NOTE | 2024-10-20 19:43 | NUR ---
452CC BLADDER SCAN
--- NOTE | 2024-10-20 20:03 | NUR ---
IN/OUT HARVEY, PT TOLERATED WELL
--- NOTE | 2024-10-20 20:09 | ERN ---
ED Note History of Present Illness Stated Complaint: C/O URINARY RETENTION ONSET 1500 TODAY Chief Complaint: Urinary Retention Time Seen by MD: 19:20 Time Seen by Midlevel: 19:20 Dictation: 74-year-old male who presents to the ED for evaluation of urinary retention. Patient reports he has had a Isaacs catheter in place for a month already. Reports he came into the ER today earlier this morning to get it removed at the request of the urologist as that he did not want to show with a Isaacs for tomorrows appointment. No fever, chills. Reports he wants Isaacs placed back despite urologist seen for him to have it removed before tomorrow visit. Denies abdominal pain. Reports discomfort due to urinary retention. Allergies: Coded Allergies: No Known Drug Allergies (Unverified Allergy, Unknown, 04/02/24) Home Meds Active Scripts Cephalexin Monohydrate (Keflex) 500 Mg Cap, 500 MG PO QID for 7 Days, #28 CAP Prov:AAYUSH VIRAMONTES 10/20/24 Cephalexin Monohydrate (Keflex) 500 Mg Cap, 1 CAP PO TID for 10 Days, #30 CAP 0 Refills Prov:BUCK THOMAS MD 05/24/24 Sulfamethoxazole/Trimethoprim (Bactrim Ds Tablet) 800 Mg-160 Mg Tablet, 1 TAB PO BID for 7 Days, #14 TAB 0 Refills Prov:ROBBIE BASURTO MD 04/18/24 Tamsulosin HCl (Flomax) 0.4 Mg Cap.er.24h, 0.4 CAP PO DAILY for 30 Days, #30 CAP 0 Refills Prov:ROBBIE BASURTO MD 04/18/24 Past Medical History Past Medical History: Hypertension Additional Past Medical Hx: URINARY RETENTION Surgical History: None RN Note Reviewed/Agreed w/PFSH: Yes Review of System Dictation Constitutional: Negative for fever,chills, and weight loss Eyes: Negative for injury, pain,redness, and discharge ENT: Negative for injury,pain or swelling Cardiovascular: Negative for chest pain, palpitations, and edema Respiratory: Negative for shortness of breath, cough, and wheezing, Abdomen/GI: Negative for abdominal pain, nausea, vomiting, diarrhea, and constipation Back: Negative for injury and pain : Negative for injury, bleeding and discharge MS/Extremity: Negative for injury and deformity Skin: Negative for rash, and discoloration Neuro: Negative for headache, weakness, numbness, tingling, and seizure Psych: Negative for suicide ideation, homicidal ideation, and hallucinations Review of Systems: was completed Initial Vital Sign VS Vital Signs Date Time Temp Pulse Resp B/P (MAP) Pulse Ox O2 Delivery O2 Flow Rate FiO2 10/20/24 19:19 97.7 102 20 176/101 97 Room Air 10/20/24 19:27 0 21 Physical Exam Dictation General: awake, alert, NAD Head/Face: Normocephalic, atraumatic Eyes: PERRL, EOMI, vision at baseline ENT: oral cavity clear, TMs clear, no signs of infection Neck: Trachea midline, supple, no nuchal rigidity Cardiovascular: RRR, normal S1/S2, No MRGs, no JVD Respiratory: CTAB, no respiratory distress, No rales or wheezes Abdomen: Soft, non-tender, non-distended, normal bowel sounds, no guarding or rebound. Skin: Warm, dry, normal turgor, no rash MS/Extremity: Pulses equal, no cyanosis, neurovascular intact, FROM Neuro: COAx4, GCS 15, strength 5/5, CN 2-12 intact, normal cerebellar exam, normal gait, Psych: Normal behavior, mood, and affect normal Results (Laboratory/Radiology) Laboratory/Radiology Laboratory Tests Test 10/20/24 20:00 Urine Color COLORLESS (YELLOW) Urine Appearance CLEAR (CLEAR) Urine pH 6.0 (5.0-8.0) Urine Specific [place] 1.006 (1.001-1.031) Urine Protein NEGATIVE mg/dL (NEGATIVE) Urine Glucose (UA) NEGATIVE mg/dL (NEGATIVE) Urine Ketones NEGATIVE mg/dL (NEGATIVE) Urine Occult Blood SMALL (NEGATIVE) H Urine Nitrate NEGATIVE (NEGATIVE) Urine Bilirubin NEGATIVE mg/dL (NEGATIVE) Urine Urobilinogen 0.2 mg/dL (0.2-1.0) Urine Leukocyte Esterase 75 Kane/uL (NEGATIVE) H Labs Reviewed?: Yes ED Course ED Course Orders Procedure Category Date Status Time Urinalysis Profile LAB 10/20/24 Complete 19:38 Bladder Scan CPOE 10/20/24 Transmitted 19:38 Bladder Scan CPOE 10/20/24 Transmitted 19:38 *Nursing CPOE 10/20/24 Transmitted Communication: 19:38 Vital Signs Date Time Temp Pulse Resp B/P (MAP) Pulse Ox O2 Delivery O2 Flow Rate FiO2 10/20/24 19:27 97.7 92 18 153/87 97 Room Air* 0 21 10/20/24 19:19 97.7 102 20 176/101 97 Room Air 2021, post residual volume on bladder scan shows 3 cc with significant improvement. The patient follow up with be removed and patient is stable for discharge home with the urologist follow up tomorrow morning. Return precautions discussed with the patient. Patient verbalized understanding, agreed with the plan, and all questions were answered at this time. Medical Decision Making MDM MDM: Differential diagnosis: Urinary retention, UTI Need for hospitalization: Patient does meet criteria for hospitalization. Need for emergency major/minor surgery: No I independently interpreted the test that were performed, results were reviewed by me and considered findings on radiology if ordered. Medical management and examination interpretation discussions were had by me with other qualified healthcare professionals as indicated for the patient's care. Patient was already evaluated this morning and had his Isaacs removed at the request of the neurologist for tomorrow's appointment. Patient in today back to the ED for urinary retention unable to urinate fully. Bladder scan showed approximately 400 cc in the no Isaacs was placed as I educated patient that if the urologist wants him to the appointment tomorrow with a Isaacs that we were going to isn't to the recommendations have patient follow up at 8:00 a.m. for his appointment and see what they recommend moving forward. In and out Isaacs was placed to alleviate symptoms and patient will be discharged home in stable condition with 3cc post residual volume and improvement in symptoms. DX & DISP Disposition: Discharge Departure Impression: Primary Impression: Urinary retention Additional Impression: UTI (urinary tract infection) Condition: Stable Scripts Cephalexin Monohydrate (Keflex) 500 Mg Cap 500 MG PO QID for 7 Days, #28 CAP Prov: AAYUSH VIRAMONTES 10/20/24 Additional Instructions: DISCHARGE HOME. REST. FOLLOW UP WITH PRIMARY CARE IN 24 HOURS AND PLEASE FOLLOW UP WITH THE UROLOGIST APPOINTMENT TOMORROW AND EDUCATED ON HOW HARD IT IS TO COME ABOUT THOSE APPOINTMENTS. RETURN TO THE ER FOR ANY ACUTE CHANGE. PATIENT WAS ALSO ADVISED TO FOLLOW-UP WITH PRIMARY CARE PHYSICIAN IN 1 TO 2 DAYS FOR CONTINUED MONITORING. ALL INSTRUCTIONS WERE GIVEN TO LAYMANS TERM AND PATIENT AGREEABLE TO DISCHARGE AND PROPER FOLLOW-UP. Referrals: EUSEBIO TAVERA (PCP) I have reviewed the case, and I agree with, Diagnosis and Plan AAYUSH VIRAMONTES Oct 20, 2024 20:09
--- NOTE | 2024-10-20 20:24 | NUR ---
BLADDER SCAN POST IN/OUT IS 3CC, APRIL LOONEY AWARE
[2024-10-20 20:25] LABS: APPEARANCE,URINE CLEAR (CLEAR); GLUCOSE, URINE (UA) NEGATIVE (NEGATIVE); LEUKOCYTE ESTERASE ,URINE 75 Leu/uL (NEGATIVE); NITRATE,URINE NEGATIVE (NEGATIVE); OCCULT BLOOD,URINE SMALL (NEGATIVE)
--- NOTE | 2024-10-20 20:25 | NUR ---
600CC OUTPUT FROM IN/OUT WES
[2024-10-20 20:29] LABS: ADD UA MICROSCOPIC YES
[2024-10-20] MEDS ORDERED: CEPH500B PO (20:32)
== END 2024-10-20 20:27 | disposition home or self-care (01) ==
LOC: EDH 19:16
DX: R33.9 Retention of urine, unspecified (principal); N39.0 Urinary tract infection, site not specified; I10 Essential (primary) hypertension; Z79.899 Other long term (current) drug therapy
CPT/HCPCS: 51701; 81001; 87086; 87186; 99284

== ENCOUNTER 2024-11-13 13:22 | Emergency (ER) | payer OTHER, MEDICAID ==
[~2024-11-13] VITALS: Ht 170.2 cm; Wt 99.8 kg
--- NOTE | 2024-11-13 14:15 | NUR ---
PATIENT CAME IN WITH A C/O HOME HARVEY CATH LEAKING. HARVEY CATH REMOVED WITH NO ISSUES.
--- NOTE | 2024-11-13 14:32 | NUR ---
AFTER NEW HARVEY INSERTION, HARVEY BAG REMOVED AND EXCHANGED FOR A LEG BAG.
[2024-11-13 14:37] VITALS: TEMP 98.9
--- NOTE | 2024-11-13 14:39 | ERN ---
General Chief Complaint: Urinary Catheter Problems Stated Complaint: HARVEY CATHETER LEAK Time Seen by MD: 13:24 Time Seen by Midlevel: 13:24 Source: patient History of Present Illness Initial Comments The patient is a 74-year-old male with a past medical history of BPH on finasteride presenting to the emergency department for a Harvey catheter replacement. Patient has an extensive history of urinary retention in his followed by a neurologist in [facility]. Today he noticed his Harvey bag leaking so he decided to come in for replacement. Denies any fever, chills, abdominal pain, or any other symptoms at this time. Allergies: Coded Allergies: No Known Drug Allergies (Unverified Allergy, Unknown, 04/02/24) Home Meds Active Scripts Cephalexin Monohydrate (Keflex) 500 Mg Cap, 500 MG PO QID for 7 Days, #28 CAP Prov:AAYUSH VIRAMONTES 10/20/24 Cephalexin Monohydrate (Keflex) 500 Mg Cap, 1 CAP PO TID for 10 Days, #30 CAP 0 Refills Prov:BUCK THOMAS MD 05/24/24 Sulfamethoxazole/Trimethoprim (Bactrim Ds Tablet) 800 Mg-160 Mg Tablet, 1 TAB PO BID for 7 Days, #14 TAB 0 Refills Prov:ROBBIE BASURTO MD 04/18/24 Tamsulosin HCl (Flomax) 0.4 Mg Cap.er.24h, 0.4 CAP PO DAILY for 30 Days, #30 CAP 0 Refills Prov:ROBBIE BASURTO MD 04/18/24 Past Medical History Past Medical History: Hypertension Medical History Other: URINARY RETENTION Past Surgical History: None ROS Dictation CONSTITUTIONAL: Negative except for HPI HEAD/FACE: Negative except for HPI EENT: Negative except for HPI RESPIRATORY: Negative except for HPI GASTROINTESTINAL/ABDOMINAL: Negative except for HPI GENITOURINARY: Negative except for HPI MUSCULOSKELETAL: Negative except for HPI INTEGUMENTARY: Negative except for HPI NEUROLOGICAL/PSYCH: Negative except for HPI HEMATOLOGIC/LYMPHATIC: Negative except for HPI All Systems Negative, Except as noted above. 13 point review of systems assessed and all negative except for above. Physical Exam Physical Exam Dictation PHYSICAL EXAM: GENERAL: alert,, awake oriented x 3 HEENT: EOMI, Sclera non icteric, moist mucosa NECK: Supple, no JVD, trachea midline LUNGS: Clear breath sounds bilaterally. No wheezes HEART: Regular rate and rhythm. Normal S1 and S2, without murmurs ABD: Abdomen soft, nontender. Bowel sounds present EXT: No clubbing or cyanosis, NEURO: Alert and oriented to person, follows commands Results Laboratory and Microbiology Lab and Micro Result Laboratory Tests Test 11/13/24 15:03 Urine Color YELLOW (YELLOW) Urine Appearance CLOUDY (CLEAR) H Urine pH 6.0 (5.0-8.0) Urine Specific [place] 1.032 (1.001-1.031) Urine Protein 300 mg/dL (NEGATIVE) H Urine Glucose (UA) 30 mg/dL (NEGATIVE) H Urine Ketones NEGATIVE mg/dL (NEGATIVE) Urine Occult Blood LARGE (NEGATIVE) H Urine Nitrate NEGATIVE (NEGATIVE) Urine Bilirubin NEGATIVE mg/dL (NEGATIVE) Urine Urobilinogen 2.0 mg/dL (0.2-1.0) H Urine Leukocyte Esterase 500 Kane/uL (NEGATIVE) H Urine RBC TNTC /HPF (0-1) H Urine WBC TNTC /HPF (0-1) H Urine WBC Clumps (Auto) FEW /HPF (0-1) Urine Squamous Epithelial Cells RARE /HPF (0-2) Urine Bacteria None /HPF (None Seen) Urine Hyaline Casts 6-10 /LPF (0-1 /LPF) H Urine Yeast RARE /HPF (None Seen) MDM MDM: Differential diagnosis: Urinary tract infection, Harvey catheter evaluation, urinary retention There are no social concerns with this patient. Prescription drug management Prescriptions will include: None Medical management and examination interpretation discussions were had by me with other qualified healthcare professionals as indicated for the patient's care. ED Course Orders Procedure Category Date Status Time Nurse Driven Harvey [place] 11/13/24 In Process Removal Pro 13:31 Urinalysis Profile LAB 11/13/24 Complete 15:03 Culture Urine BUSHRA 11/13/24 In Process 15:23 Hydrocodone/Apap PHA 11/13/24 Complete 5/325 ([place] 5/325mg) 15:25 Ceftriaxone 1g Vial PHA 11/13/24 Verified (Rocephine 1g Inj) 16:00 Current Medications Medications (Trade) Dose Ordered Sig/Sloan Route PRN Reason Start Time Stop Time Status Last Admin Dose Admin Acetaminophen/ Hydrocodone Bitart (NORco 5/325MG) 1 tab STAT STAT PO 11/13/24 15:25 11/13/24 15:36 DC 11/13/24 15:46 Vital Signs Date Time Temp Pulse Resp B/P (MAP) Pulse Ox O2 Delivery O2 Flow Rate FiO2 11/13/24 14:37 99.0 97 18 151/85 95 Room Air* 0 21 11/13/24 13:24 99.0 97 18 151/85 95 Room Air DX & DISP Disposition: Discharge Departure Impression: Primary Impression: Harvey catheter problem Additional Impression: UTI (urinary tract infection) Condition: Stable Scripts Levofloxacin (Levaquin 750Mg Tabs) 750 Mg Tablet 750 MG PO DAILY for 7 Days, #7 TAB 0 Refills Prov: FAUSTINO BOATENG 11/13/24 Additional Instructions: Please follow up with your urologist as discussed. Return to the ER if you develop any fever, chills, bloody urine, or any new or worsening symptoms. Referrals: EUSEBIO TAVERA (PCP) Time of Disposition: 14:39 I have reviewed the case, and I agree with, Diagnosis and Plan I performed the substantive portion of the visit. I have reviewed and personally made and approve the management plan that is documented in the note by myself or the SIMA. I acknowledge for responsibility for the patient's management plan. FAUSTINO BOATENG Nov 13, 2024 14:39
[2024-11-13 15:21] LABS: APPEARANCE,URINE CLOUDY (CLEAR); GLUCOSE, URINE (UA) 30 mg/dL (NEGATIVE); LEUKOCYTE ESTERASE ,URINE 500 Leu/uL (NEGATIVE); NITRATE,URINE NEGATIVE (NEGATIVE); OCCULT BLOOD,URINE LARGE (NEGATIVE)
[2024-11-13 15:22] LABS: ADD UA MICROSCOPIC YES
[2024-11-13 15:29] LABS: SQUAMOUS EPITHELIAL CELL,UR RARE /HPF (0-2); WBC CLUMP FEW /HPF (0-1); YEAST,URINE BUDDING RARE /HPF (None Seen)
[2024-11-13] MEDS: HYDROcodone/APAP 5/325 1 TAB TABLET PO STA (15:46)
[2024-11-13] MEDS ORDERED: LEVO750T68 PO (15:53)
[2024-11-13 16:15] VITALS: BP 124/78; PULSE 84; RESP 18; O2SAT 100
== END 2024-11-13 16:19 | disposition home or self-care (01) ==
LOC: EDH 13:22
DX: T83.038A Leakage of other urinary catheter, initial encounter (principal); N39.0 Urinary tract infection, site not specified; I10 Essential (primary) hypertension; Y82.8 Other medical devices associated with adverse incidents; Y92.89 Other specified places as the place of occurrence of the external cause
CPT/HCPCS: 99284; 87086 ×2; 87186; 81001; 96372; 51702; J0696